=== PATIENT | female | born 2000 | race Caucasian/White ===

== ENCOUNTER 2020-06-18 18:46 | Emergency (ER) | payer OTHER ==
[2020-06-18 19:07] VITALS: BP 124/60
[2020-06-18] MEDS ORDERED: PROMETHAZINE HCL 25 MG TABLET PO ONE (19:32)
[2020-06-18] MEDS ORDERED: ACETAMINOPHEN 325 MG TABLET PO ONE (19:32)
--- NOTE | 2020-06-18 19:33 | ER Document Report ---
ED Medical Screen (RME) - General Chief Complaint: Nausea Stated Complaint: NAUSEA Time Seen by Provider: 06/18/20 19:28 Notes: Patient presents with concerns about possible coronavirus. Patient reports nausea, congestion, sore throat and fatigue. Patient reports occasional shortness of breath. Patient is currently 7 weeks . I have greeted and performed a rapid initial assessment of this patient. A comprehensive ED assessment and evaluation of the patient, analysis of test results and completion of the medical decision making process will be conducted by additional ED providers. Physical Exam - Vital signs Vitals: Temp Pulse Resp BP Pulse Ox 98.7 F 83 18 124/60 100 06/18/20 19:06 06/18/20 19:06 06/18/20 19:06 06/18/20 19:06 06/18/20 19:06 - General General appearance: Appears well, Alert In distress: None - Respiratory Respiratory status: No respiratory distress Course - Vital Signs Vital signs: Temp Pulse Resp BP Pulse Ox 98.7 F 83 18 124/60 100 06/18/20 19:06 06/18/20 19:06 06/18/20 19:06 06/18/20 19:06 06/18/20 19:06
== END 2020-06-18 20:35 | disposition left against medical advice (07) ==
LOC: ER 18:46
DX: J02.9 Acute pharyngitis, unspecified (principal); R11.0 Nausea; R53.83 Other fatigue
CPT/HCPCS: 99281

== ENCOUNTER → 2020-06-19 | Outpatient (CLI) | payer OTHER ==
--- NOTE | 2020-06-19 13:23 | ER RDC ASSESSMENT REPORT ---
Intake - In the Last 14 days Have you traveled outside [place]?: No Have you been in close contact with someone CONFIRMED: Yes Worked in Healthcare?: No - Symptoms Subjective Fever([place] feverish): No Chills: Yes Muscule Aches: No Runny Nose: No Sore Throat: Yes Cough (New or worsening chronic cough): No Shortness of breath: Yes Nausea or Vomiting: No Headache: Yes Abdominal Pain: No Diarrhea(3 or more loose stools in last 24 hours): No - Do you have any of the following Chronic lung disease: Asthma or emphysema or COPD: Yes Chronic Lung Disease Comment: asthma Cystic Fibrosis: No Diabetes: No High Blood Pressure: No Cardiovascular Disease: No Chronic Kidney Disease: No Chronic Liver Disease: No Chronic blood disorder like Sickle Cell Disease: No Weak immune system due to disease or medication: No Neurologic condition that limits movement: No Developmental delay - Moderate to Severe: No Recent (within past 2 weeks) or current : Yes Morbid Obesity (>100 pounds over ideal weight): No - Objective Temperature: 98.4 F Pulse Rate: 79 Respiratory Rate: 16 Blood Pressure: 125/55 O2 Sat by Pulse Oximetry: 97 Objective: Given above, testing performed: If Testing Performed: Test Specimen Type Sent to General - General Information source: Patient Notes: Patient presents to the RDC for screening for the coronavirus. Patient reports having symptoms for the past week including chills, sore throat, shortness of breath and headache. Patient is currently 7 months and has a history of asthma and anemia. Past Medical History - General Information source: Patient - Social History Smoking Status: Former Smoker - Medical History Medical History: Other - Anemia Pulmonary Medical History: Reports: Hx Asthma Past Surgical History: Reports: Hx Appendectomy, Hx Tonsillectomy Physical Exam - Notes Notes: The patient was evaluated during the global Covid 19 pandemic, and that diagnosis was suspected/considered upon their initial presentation. Their evaluation, treatment and testing was consistent with current guidelines for patients who present with complaints or symptoms that may be related to Covid 19. Full physical exam could not be performed due to covid 19 isolation protocols. Constitutional: Nontoxic appearance, no acute distress Eyes: Nonicteric, extraocular movements intact, sclera clear ENT: Posterior pharynx without exudates, no tonsillar hypertrophy Cardiovascular: Heart rate and rhythm regular, no JVD Respiratory: Breath sounds clear bilaterally, nonlabored breathing, no use of accessory muscles, no tachypnea Gastrointestinal: Gravid abdomen Muculoskeletal: Moves all extremities well Skin: Normal color Neuro: Awake alert oriented, normal speech Psych: Normal mood and affect Diagnostic Results Laboratory Results: Patient presents with upper respiratory symptoms worrisome for possible Covid 19. Patient does not have emergency worrying symptoms such as difficulty breathing, shortness of breath, chest pain, pressure, confusion or cyanosis. P atient appears suitable for discharge as they are not of an advanced age, do not have any chronic medical conditions such as diabetes, CAD, immune deficiency, chronic lung disease or chronic kidney disease. Patient's vital signs are stable and patient is nontoxic in appearance. Good return precautions have been discussed with patient, patient verbalized understanding and is agreeable with discharge plan of care at this time. Patient Education/Counseling Counseling/Education: Patient was provided with discharge information including: As a person under investigation for Covid 19, the [place] department of Health and Human Services, division of public health advises you to adhere to the following guidance until your test results are reported to you. If your test result is positive, you will receive additional information from your provider and your local health department at that time. Remain at home until you are cleared by the health provider or public health authorities. Keep a log of visitors to your home, notify any visitors to your home of your isolation status. If you plan to move to a new address or leave the county, notify the local health department in your County. Call your doctor or seek care if you have an urgent medical need. Before seeking medical care, call ahead to get instructions from the provider before arriving at the medical office clinic or hospital. Notify them that you are being tested for the virus that causes Covid 19 so that arrangements can be made, as necessary, to prevent transmission to others in the healthcare setting. Next, notify the local health department in your county. If a medical emergency arises and you need to call 911, inform the first responders that you are being tested for the virus that causes Covid 19. Next, notify the local health department in your county. RDC Discharge - Discharge Clinical Impression: Encounter for screening laboratory testing for COVID-19 virus Condition: Stable Disposition: Home; Selfcare
[2020-06-19 13:44] VITALS: BP 125/55
[2020-06-19 14:35] LABS: A TYPE INFLUENZA AG NEGATIVE (NEGATIVE); B INFLUENZA AG NEGATIVE (NEGATIVE)
== END ==
LOC: RDC 13:03
PROVIDERS: ATTEND Nurse Practitioner Family
DX: Z20.828 Contact with and (suspected) exposure to other viral communicable diseases (principal)
CPT/HCPCS: 87070; 87880; 87635; 87804; C9803; 99201

== ENCOUNTER → 2020-08-21 | Outpatient (CLI) | payer OTHER ==
[2020-08-21 15:41] VITALS: BP 119/58
--- NOTE | 2020-08-21 15:41 | ER RDC ASSESSMENT REPORT ---
Intake - In the Last 14 days Have you traveled outside [place]?: No Have you been in close contact with someone CONFIRMED: No Worked in Healthcare?: No - Symptoms Subjective Fever([place] feverish): No Chills: No Muscule Aches: No Runny Nose: No Sore Throat: No Cough (New or worsening chronic cough): Yes Shortness of breath: Yes Nausea or Vomiting: No Headache: No Abdominal Pain: No Diarrhea(3 or more loose stools in last 24 hours): No - Do you have any of the following Chronic lung disease: Asthma or emphysema or COPD: No Cystic Fibrosis: No Diabetes: No High Blood Pressure: No Cardiovascular Disease: No Chronic Kidney Disease: No Chronic Liver Disease: No Chronic blood disorder like Sickle Cell Disease: No Weak immune system due to disease or medication: No Neurologic condition that limits movement: No Developmental delay - Moderate to Severe: No Recent (within past 2 weeks) or current : No --If current: Trimester: 3rd Obesity Comment: Height 5 feet 4 inches weight 204 pounds Other Comment: 37 weeks patient has a history of anemia - Objective Temperature: 98.2 F Pulse Rate: 79 Respiratory Rate: 16 Blood Pressure: 119/58 O2 Sat by Pulse Oximetry: 98 Objective: Given above, testing performed: If Testing Performed: Test Specimen Type Sent to General - General Information source: Patient Notes: Patient here at [facility] for Covid testing patient's started to have symptoms of a cough and difficulty breathing reports feeling fatigued and occasional hallucinations. Patient is 37 weeks with a history of anemia and sees [facility] for care. Patient was instructed to come to have Covid testing done patient denies any known positive exposure that she is aware of. Past Medical History - General Information source: Patient - Social History Smoking Status: Former Smoker - History of Vaping nine months ago Pulmonary Medical History: Reports: Hx Asthma Past Surgical History: Reports: Hx Appendectomy, Hx Tonsillectomy Physical Exam - General General appearance: Appears well, Alert In distress: None Notes: PHYSICAL EXAMINATION: GENERAL: Well-appearing and in no acute distress. HEAD: Atraumatic, normocephalic. EYES: sclera anicteric, conjunctiva are normal. ENT: nares patent. Moist mucous membranes. NECK: Normal range of motion, supple without lymphadenopathy LUNGS: CTAB and equal. No wheezes rales or rhonchi. Respirations even and unlabored lung sounds clear. HEART: Regular rate and rhythm without murmurs ABDOMEN: Soft, nontender, normal bowel sounds, no guarding. EXTREMITIES: Normal range of motion, no pitting edema. No cyanosis. NEUROLOGICAL: Cranial nerves grossly intact. Normal speech. Normal gait. PSYCH: Normal mood, normal affect. SKIN: Warm, Dry, normal turgor, no rashes or lesions noted Diagnostic Results Laboratory Results: Pending strep culture pending Covid testing results. Patient provided instructions regarding Covid to include: As a person under investigation for Covid 19, the [facility] of Health and Human Services, division of public health advises you to adhere to the following guidance until your test results are reported to you. If your test result is positive, you will receive additional information from your provider and your local health department at that time. Remain at home until you are cleared by the health provider or public health authorities. Keep a log of visitors to your home, notify any visitors to your home of your isolation status. If you plan to move to a new address or leave the [facility], notify the local health department in your County. Call your doctor or seek care if you have an urgent medical need. Before seeking medical care, call ahead to get instructions from the provider before arriving at the medical office clinic or hospital. Notify them that you are being tested for the virus that causes Covid 19 so that arrangements can be made, as necessary, to prevent transmission to others in the healthcare setting. Next, notify the local health department in your [facility]. If a medical emergency arises and you need to call 911, inform the first responders that you are being tested for the virus that causes Covid 19. Next, notify the local health department in your [facility]. Patient Education/Counseling Counseling/Education: Patient presents with upper respiratory symptoms worrisome for possible Covid 19. Patient does not have emergency worring symptoms such as difficulty breathing, shortness of breath, chest pain, pressure, confusion or cyanosis. Patient appears suitable for discharge. Patient instructed to follow-up with cataract lens generator at [facility]. To ED for persistent or worsening symptoms. Patient's vital signs are stable and patient is nontoxic in appearance. Good return precautions have been discussed with patient, patient verbalized understanding and is agreeable with discharge plan of care at this sukhwinder rachel [facility] Discharge - Discharge Clinical Impression: Encounter for screening laboratory testing for COVID-19 virus Upper respiratory infection Qualifiers: URI type: unspecified URI Qualified Code(s): J06.9 - Acute upper respiratory infection, unspecified Condition: Stable Disposition: Home; Selfcare
[2020-08-21 17:17] LABS: A TYPE INFLUENZA AG NEGATIVE (NEGATIVE); B INFLUENZA AG NEGATIVE (NEGATIVE)
== END ==
LOC: RDC 14:27
PROVIDERS: ATTEND Nurse Practitioner Family
DX: Z20.828 Contact with and (suspected) exposure to other viral communicable diseases (principal); R05 Cough; R06.02 Shortness of breath; Z3A.37 37 weeks gestation of pregnancy
CPT/HCPCS: 87070; 87880; 87635; 87804; 99211 ×2; C9803

== ENCOUNTER 2020-09-04 16:39 | Outpatient (CLI) | payer OTHER ==
[2020-09-04 17:39] LABS: APPEARANCE,URINE SLIGHTLY-CLOUDY; BILIRUBIN,URINE NEGATIVE (NEGATIVE); COLOR,URINE YELLOW; GLUCOSE, URINE NEGATIVE (NEGATIVE); KETONES,URINE NEGATIVE (NEGATIVE); LEUKOCYTE ESTERASE,URINE TRACE (NEGATIVE); NITRITE,URINE NEGATIVE (NEGATIVE); PROTEIN,URINE NEGATIVE (NEGATIVE); URINE SPECIFIC GRAVITY 1.004; UROBILINOGEN,URINE NEGATIVE mg/dL (<2.0)
[2020-09-04 18:03] LABS: URINE AMPHETAMINES SCREEN NEGATIVE; URINE BARBITURATES SCREEN NEGATIVE; URINE BENZODIAZEPINES SCREEN NEGATIVE; URINE COCAINE SCREEN NEGATIVE; URINE MARIJUANA (THC) SCREEN NEGATIVE; URINE METHADONE SCREEN NEGATIVE; URINE PHENCYCLIDINE SCREEN NEGATIVE
--- NOTE | 2020-09-04 18:19 | Non Stress Test Report ---
Non Stress Test Datetime Report Generated by CPN: 09/04/2020 18:18 DEMOGRAPHIC Test Number: 1 EGA NST: 39.2 INDICATION Indication for Study (NST) Other: Labor Observation VITAL SIGNS Temperature - NST: 99.1 Pulse - NST: 58 RESP - NST: 18 NBPSYS NST: 119 NBPDIA NST: 65 URINE RESULTS Urine Ketones - NST: Positive MONITORING Monitor Explained: Monitor Explained; Test Explained; Patient Verbalized Understanding Time on Monitor: 09/04/2020 16:56 Time off Monitor: 09/04/2020 17:59 NST Duration: 63 NST INTERVENTIONS NST Interventions: PO Hydration; Reposition Patient Physician Notified NST: Shearer MD BABY A: [id number] BABY A Movement : Present Contraction Frequency : Irregular FHR Baseline : 140 Accelerations : 15X15 Decelerations : None Variability : Moderate 6-25bpm NST Review: Meets Criteria for Reactive NST NST Review and Verified By : David Madrigal RN NST Results: Reactive NST REPORT Report Trigger: Send Report
== END 2020-09-04 18:06 | disposition home or self-care (01) ==
LOC: LC 16:39
PROVIDERS: ATTEND Obstetrics & Gynecology
DX: O47.1 False labor at or after 37 completed weeks of gestation (principal); Z3A.39 39 weeks gestation of pregnancy
CPT/HCPCS: 59025; 80307; 81005; 84112

== ENCOUNTER 2020-09-08 20:34 | Outpatient (CLI) | payer OTHER ==
[2020-09-08 21:16] LABS: APPEARANCE,URINE SLIGHTLY-CLOUDY; BILIRUBIN,URINE NEGATIVE (NEGATIVE); COLOR,URINE YELLOW; GLUCOSE, URINE NEGATIVE (NEGATIVE); KETONES,URINE NEGATIVE (NEGATIVE); LEUKOCYTE ESTERASE,URINE SMALL (NEGATIVE); NITRITE,URINE NEGATIVE (NEGATIVE); PROTEIN,URINE NEGATIVE (NEGATIVE); UROBILINOGEN,URINE NEGATIVE mg/dL (<2.0)
--- NOTE | 2020-09-08 21:35 | Non Stress Test Report ---
Non Stress Test Datetime Report Generated by CPN: 09/08/2020 21:35 DEMOGRAPHIC EGA NST: 39.6 INDICATION Indication for Study (NST) Other: labor check MONITORING Monitor Explained: Monitor Explained; Test Explained; Patient Verbalized Understanding Time on Monitor: 09/08/2020 20:52 Time off Monitor: 09/08/2020 21:17 NST Duration: 25 NST INTERVENTIONS NST Interventions: None Physician Notified NST: Luong BABY A: [id number] BABY A Movement : Present Contraction Frequency : none FHR Baseline : 135 Accelerations : 15X15 Decelerations : None Variability : Moderate 6-25bpm NST Review: Meets Criteria for Reactive NST NST Review and Verified By : Constantine Farris, RN NST Results: Reactive NST REPORT Report Trigger: Send Report Report Trigger: Send Report
[2020-09-08 21:41] LABS: URINE AMPHETAMINES SCREEN NEGATIVE; URINE BARBITURATES SCREEN NEGATIVE; URINE BENZODIAZEPINES SCREEN NEGATIVE; URINE COCAINE SCREEN NEGATIVE; URINE MARIJUANA (THC) SCREEN NEGATIVE; URINE METHADONE SCREEN NEGATIVE; URINE PHENCYCLIDINE SCREEN NEGATIVE
== END 2020-09-08 21:26 | disposition home or self-care (01) ==
LOC: LC 20:34
PROVIDERS: ATTEND Student in an Organized Health Care Education/Training Program
DX: O47.1 False labor at or after 37 completed weeks of gestation (principal); Z3A.39 39 weeks gestation of pregnancy; Z87.891 Personal history of nicotine dependence
CPT/HCPCS: 59025; 80307; 81005; 84112

== ENCOUNTER 2020-09-13 08:28 | Outpatient (CLI) | payer OTHER ==
[2020-09-13 09:02] LABS: APPEARANCE,URINE SLIGHTLY-CLOUDY; BILIRUBIN,URINE NEGATIVE (NEGATIVE); COLOR,URINE YELLOW; GLUCOSE, URINE NEGATIVE (NEGATIVE); KETONES,URINE NEGATIVE (NEGATIVE); LEUKOCYTE ESTERASE,URINE NEGATIVE (NEGATIVE); NITRITE,URINE NEGATIVE (NEGATIVE); PROTEIN,URINE NEGATIVE (NEGATIVE); URINE SPECIFIC GRAVITY 1.013; UROBILINOGEN,URINE NEGATIVE mg/dL (<2.0)
[2020-09-13 09:17] LABS: URINE AMPHETAMINES SCREEN NEGATIVE; URINE BARBITURATES SCREEN NEGATIVE; URINE BENZODIAZEPINES SCREEN NEGATIVE; URINE COCAINE SCREEN NEGATIVE; URINE MARIJUANA (THC) SCREEN NEGATIVE; URINE METHADONE SCREEN NEGATIVE; URINE PHENCYCLIDINE SCREEN NEGATIVE
--- NOTE | 2020-09-13 12:17 | Non Stress Test Report ---
Non Stress Test Datetime Report Generated by CPN: 09/13/2020 12:17 DEMOGRAPHIC Test Number: 3 EGA NST: 40.4 INDICATION Indication for Study (NST) Other: Labor check VITAL SIGNS Temperature - NST: 99.1 Pulse - NST: 56 RESP - NST: 18 NBPSYS NST: 117 NBPDIA NST: 56 MONITORING Monitor Explained: Monitor Explained; Test Explained; Patient Verbalized Understanding Time on Monitor: 09/13/2020 08:41 Time off Monitor: 09/13/2020 11:34 NST Duration: 173 NST INTERVENTIONS NST Interventions: PO Hydration; Reposition Patient (Annotations: Data stored by CPN on behalf of user) Physician Notified NST: Dr Castillo BABY A: [id number] BABY A Movement : Present Movement : Present Contraction Frequency : irreg FHR Baseline : 130 Accelerations : 15X15 Decelerations : None Variability : Moderate 6-25bpm NST Review: Meets Criteria for Reactive NST NST Review and Verified By : DebbieDo Calvert, RN NST Results: Reactive NST COMMENTS NST Comments: pt to be d/c home to return Alex 12/14 for induction of labor NST REPORT Report Trigger: Send Report
== END 2020-09-13 12:05 | disposition home or self-care (01) ==
LOC: LC 08:28
PROVIDERS: ATTEND Obstetrics & Gynecology Gynecology
DX: O47.1 False labor at or after 37 completed weeks of gestation (principal); Z3A.40 40 weeks gestation of pregnancy
CPT/HCPCS: 80307; 81005

== ENCOUNTER 2020-09-13 20:38 | Outpatient (CLI) | payer OTHER ==
[2020-09-13 21:16] LABS: APPEARANCE,URINE CLEAR; BILIRUBIN,URINE NEGATIVE (NEGATIVE); COLOR,URINE YELLOW; GLUCOSE, URINE NEGATIVE (NEGATIVE); KETONES,URINE 20 mg/dL (NEGATIVE); LEUKOCYTE ESTERASE,URINE NEGATIVE (NEGATIVE); NITRITE,URINE NEGATIVE (NEGATIVE); PROTEIN,URINE NEGATIVE (NEGATIVE); URINE SPECIFIC GRAVITY 1.012; UROBILINOGEN,URINE NEGATIVE mg/dL (<2.0)
[2020-09-13 21:35] LABS: URINE AMPHETAMINES SCREEN NEGATIVE; URINE BARBITURATES SCREEN NEGATIVE; URINE BENZODIAZEPINES SCREEN NEGATIVE; URINE COCAINE SCREEN NEGATIVE; URINE MARIJUANA (THC) SCREEN NEGATIVE; URINE METHADONE SCREEN NEGATIVE; URINE PHENCYCLIDINE SCREEN NEGATIVE
[2020-09-13] MEDS ORDERED: HYDROXYZINE PAMOATE 50 MG CAPSULE PO ONE (21:38)
[2020-09-13] MEDS ORDERED: HYDROXYZINE PAMOATE 50 MG CAPSULE ONE (21:39)
--- NOTE | 2020-09-13 23:14 | Non Stress Test Report ---
Non Stress Test Datetime Report Generated by CPN: 09/13/2020 23:14 DEMOGRAPHIC EGA NST: 40.4 INDICATION Indication for Study (NST) Other: LC- ctx MONITORING Monitor Explained: Monitor Explained; Test Explained; Patient Verbalized Understanding Time on Monitor: 09/13/2020 20:50 Time off Monitor: 09/13/2020 21:34 NST Duration: 44 NST INTERVENTIONS NST Interventions: Reposition Patient Physician Notified NST: Dr. Castillo BABY A: [id number] BABY A Movement : Present (Annotations: Data stored by [facility] on behalf of user) Contraction Frequency : 1-4 FHR Baseline : 135 Accelerations : 15X15 Decelerations : None Variability : Moderate 6-25bpm NST Review: Meets Criteria for Reactive NST NST Review and Verified By : Leonardo Estrella RN NST Results: Reactive NST REPORT Report Trigger: Send Report
== END 2020-09-13 21:54 | disposition home or self-care (01) ==
LOC: LC 20:38
PROVIDERS: ATTEND Obstetrics & Gynecology Gynecology
DX: O47.1 False labor at or after 37 completed weeks of gestation (principal); Z3A.40 40 weeks gestation of pregnancy; Z87.891 Personal history of nicotine dependence
CPT/HCPCS: 59025; 80307; 81005

== ENCOUNTER 2020-09-14 06:20 | Inpatient (IN) | payer OTHER ==
[2020-09-14 07:11] LABS: APPEARANCE,URINE CLOUDY; BILIRUBIN,URINE NEGATIVE (NEGATIVE); COLOR,URINE RED; GLUCOSE, URINE 50 mg/dL (NEGATIVE); KETONES,URINE 80 mg/dL (NEGATIVE); LEUKOCYTE ESTERASE,URINE TRACE (NEGATIVE); NITRITE,URINE NEGATIVE (NEGATIVE); PROTEIN,URINE 100 mg/dL (NEGATIVE); URINE SPECIFIC GRAVITY 1.026; UROBILINOGEN,URINE NEGATIVE mg/dL (<2.0)
[2020-09-14 07:27] LABS: URINE AMPHETAMINES SCREEN NEGATIVE; URINE BARBITURATES SCREEN NEGATIVE; URINE BENZODIAZEPINES SCREEN NEGATIVE; URINE COCAINE SCREEN NEGATIVE; URINE MARIJUANA (THC) SCREEN NEGATIVE; URINE METHADONE SCREEN NEGATIVE; URINE PHENCYCLIDINE SCREEN NEGATIVE
[2020-09-14] MEDS ORDERED: LIDOCAINE 1% INJ-PF (10 MG/ML) 30 ML SDV ONE (07:36)
[2020-09-14] MEDS ORDERED: OXYTOCIN 10 UNIT/ML VIAL ONE (07:36)
[2020-09-14] MEDS ORDERED: MISOPROSTOL 0.2 MG TABLET ONE (07:36)
[2020-09-14] MEDS ORDERED: OXYTOCIN/0.9 % SODIUM CHLORIDE 30 UNIT/500 ML RTUINJ ONE (07:36)
[2020-09-14] MEDS ORDERED: RINGERS SOLUTION,LACTATED 1,000 ML IV PRN (08:21)
[2020-09-14 08:39] LABS: ABSOLUTE MONOCYTES (AUTO) 0.3 10^3/uL (0.1-1.4); ABSOLUTE NEUT (AUTO) 15.6 10^3/uL (1.7-8.2); BASOPHILS % (AUTO) 0.2 % (0-2); HEMATOCRIT 38.1 % (36.0-47.0); HEMOGLOBIN 13.1 g/dL (12.0-15.5); LYMPHOCYTES % (AUTO) 6.1 % (13-45); MEAN CORPUSCULAR HEMOGLOBIN 30.7 pg (27.0-33.4); MEAN CORPUSCULAR HGB CONC 34.3 g/dL (32.0-36.0); MEAN CORPUSCULAR VOLUME 90 fl (80-97); PLATELET COUNT 221 10^3/uL (150-450); RED BLOOD COUNT 4.25 10^6/uL (3.72-5.28); RED CELL DISTRIBUTION WIDTH 14.2 % (11.5-14.0); SEGMENTED NEUTROPHILS % (AUTO) 91.7 % (42-78); TOTAL CELLS COUNTED % (AUTO) 100 %
[2020-09-14 09:00] LABS: URINE CREATININE 138.1 mg/dL (16-327)
[2020-09-14 09:09] LABS: UR PRO/CREAT RATIO RESULT 3.6 mg/mg (0.0-0.2); URINE PROTEIN 490.5 mg/dL (<12)
--- NOTE | 2020-09-14 10:29 | Admission Physical ---
Datetime Report Generated by CPN: 09/14/2020 10:29 CURRENT ADMISSION Chief Complaint: Uterine Contractions; Suspected Ruptured Membranes Indication for Induction: Not Applicable Admit Impression : Term, Intrauterine ; Active Labor Admit Plan: Admit to Unit; Initiate Labor Protocol ALLERGIES Medication Allergies: No Medication Allergies: No Known Allergies (09/13/2020) Latex: No Latex Allergies OBSTETRICAL HISTORY EDC: 09/09/2020 00:00 : 2 Para: 0 Term: 0 : 0 SAB: 0 IAB: 0 Livin Gestational Diabetes: No Rh Sensitization: No Incompetent Cervix: No SKIP: No Infertility: No ART Treatment: No Uterine Anomaly: No IUGR: No Hx Previous C/S: No Macrosomia: No Hx Loss/Stillborn: No PIH: No Hx : No Placenta Previa/Abruption: No Depression/PP Depression: No PTL/PROM: No Post Hemorrhage: No Current Procedures: Ultrasound; NST Obstetrical History Comments: 2017 SAB g2 - current SEE RECORDS Alcohol: No Marijuana : No Cocaine: No Other Illicit Drugs: No Cigarettes: Former Smoker. [id number] Cigarette Frequency: < 5 per day Cigarette Comments: pt vaping with nicotine at begininng of MEDICAL HISTORY Diabetes: No Blood Transfusion: No Pulmonary Disease (Asthma, TB): No Breast Disease: No Hypertension: No Product Marketing Director Surgery: No Heart Disease: No Hosp/Surgery: No Autoimmune Disorder: No Anesthetic Complications: No Kidney Disease: No Abnormal Pap Smear: No Neuro/Epilepsy: No Psychiatric Disorders: No Other Medical Diseases: No Hepatitis/Liver Disease: No Significant Family History: No Varicosities/Phlebitis: No Trauma/Violence : No Thyroid Dysfunction: No Medical History Comments: anemia - currently taking iron supplements and had infusions prior to bipolar depression - no meds or care INFECTIOUS HISTORY Gonorrhea: No Genital Herpes: No Chlamydia: No Tuberculosis: No Syphilis: No Hepatitis: No HIV/AIDS Exposure: No Rash or Viral Illness: No HPV: No PHYSICAL EXAM General: Normal HEENT: Normal Neurologic: Normal Thyroid: Deferred Heart: Normal Lungs: Normal Breast: Deferred Back: Normal Abdomen: Normal Genitourinary Exam: Normal Extremities: Normal DTRs: Normal Pelvic Type: Adequate Vital Signs: Reviewed Details Vital Signs: intermittent elevated BPs VAGINAL EXAM Dilatation: 10 Effacement: 100 Station: 0 Contraction Comments: q2mins MEMBRANES Pooling: Positive Membranes: Ruptured FETUS A EGA: 40.5 Monitoring: External US FHR- Baseline: 140 Variability: Moderate 6-25bpm Accelerations: 15X15 Decelerations: Early; Variable FHR Category: Category II Estimated Weight (gm): 3200 Presentation: Vertex Admit Comment: at term presented for active labor. hx asthma as a child, hx depression and anxiety. questionable presentation of preeclampsia. now delivered-(late entry at 1025) PLANS FOR LABOR AND DELIVERY Labor and Delivery: None Pain Management: Medications Feeding Preference: Breast Benefit of Breast Feed Discussed: Yes Circumcision: N/A INFORMED CONSENT Assignment: Rakesh Barcenas MD Signature: with User ID: [email or web address] : with User ID: [email or web address]
[2020-09-14 10:30] LABS: URINE CREATININE 171.2 mg/dL (16-327)
[2020-09-14] MEDS ORDERED: MAGNESIUM HYDROXIDE SUSP 30 ML UDCUP PO PRN (10:30)
[2020-09-14] MEDS ORDERED: PROMETHAZINE HCL INJ 25 MG/1 ML VIAL IV PRN (10:30)
[2020-09-14] MEDS ORDERED: PROMETHAZINE HCL 25 MG SUPP.RECT PR PRN (10:30)
[2020-09-14] MEDS ORDERED: DIPH/PERTUSS(ACELL)/TETANUS VAC/PF 0.5 ML SYR (>=10YO) IM PRN (10:30)
[2020-09-14] MEDS ORDERED: DIPHENHYDRAMINE HCL 25 MG CAPSULE PO PRN (10:30)
[2020-09-14] MEDS ORDERED: ZOLPIDEM TARTRATE 5 MG TABLET PO PRN (10:30)
[2020-09-14] MEDS ORDERED: ACETAMINOPHEN 325 MG TABLET PO PRN (10:30)
[2020-09-14] MEDS ORDERED: BENZOCAINE/MENTHOL AEROSOL SPRAY 56 ML TOP PRN (10:30)
[2020-09-14] MEDS ORDERED: OXYTOCIN/0.9 % SODIUM CHLORIDE 30 UNIT/500 ML RTUINJ IV PRN (10:30)
[2020-09-14] MEDS ORDERED: MEASLES,MUMPS&RUBELLA VACC/PF 0.5 ML VIAL SUBCUT PRN (10:30)
[2020-09-14] MEDS ORDERED: PSEUDOEPHEDRINE HCL 30 MG TABLET PO PRN (10:30)
[2020-09-14] MEDS ORDERED: PROMETHAZINE HCL 25 MG TABLET PO PRN (10:30)
[2020-09-14] MEDS ORDERED: ACETAMINOPHEN WITH CODEINE #3 TABLET PO PRN ×2 (10:30)
[2020-09-14] MEDS ORDERED: NA PHOS,M-B/NA PHOS,DI-BA (ADULT) 133 ML ENEMA PR PRN (10:30)
[2020-09-14] MEDS ORDERED: GLYCERIN/WITCH HAZEL LEAF 1 EACH MED..WIPE TP PRN (10:30)
[2020-09-14] MEDS ORDERED: MISOPROSTOL 0.2 MG TABLET PR PRN (10:30)
[2020-09-14] MEDS ORDERED: DIBUCAINE 1% OINTMENT 28 GM TP PRN (10:30)
[2020-09-14 10:34] LABS: URINE PRO/CREAT RATIO RESULT CALCULATION NOT DONE mg/mg; URINE PROTEIN < 5.0 mg/dL (<12)
[2020-09-14 10:55] LABS: ALBUMIN 3.5 g/dL (3.5-5.0); ALKALINE PHOSPHATASE 187 U/L (38-126); ANION GAP 11 (5-19); ASPARTATE AMINO TRANSFERASE 28 U/L (14-36); BILIRUBIN,TOTAL 0.5 mg/dL (0.2-1.3); BLOOD UREA NITROGEN 11 mg/dL (7-20); CALCIUM 9.4 mg/dL (8.4-10.2); CARBON DIOXIDE 17 mmol/L (22-30); CHLORIDE 103 mmol/L (98-107); GLUCOSE 108 mg/dL (75-110); POTASSIUM 4.4 mmol/L (3.6-5.0); TOTAL PROTEIN 6.3 g/dL (6.3-8.2); URIC ACID 6.8 mg/dL (2.5-6.2)
[2020-09-14] MEDS ORDERED: IBUPROFEN 800 MG TABLET ONE (12:06)
[2020-09-14] MEDS: IBUPROFEN 800 MG TABLET PO SCH ×3 (12:09→22:06)
--- NOTE | 2020-09-14 14:29 | Birth Certificate Data ---
Cert Data Datetime Report Generated by CPN: 09/14/2020 14:29 CERTIFICATE DATA Delivery Provider: Tika Huffman CNM (09/04/2020 16:59:Valeria Lilly RNC) 47a. Care: Yes (09/04/2020 16:59:Hollie Grant RN) 47b. Date of First Visit: 03/08/2020 00:00 (09/04/2020 16:59:Hollie Grant RN) 47c. Date of Last Visit: 09/06/2020 00:00 (09/04/2020 16:59:Hollie Grant RN) 48a. Number of Prev Live Births: 0 (09/04/2020 16:59:Hollie Grant RN) 48b. Now Livin (09/04/2020 16:59:Fina Capone RN) 48c. Live Births Now : 0 (09/04/2020 16:59:QS system process) 48e. Losses: 1 (09/04/2020 16:59:Hollie Grant RN) RISK FACTORS IN THIS 49a. Diabetes: No (09/04/2020 16:59:Hollie Grant RN) 49b. Hypertension: No (09/04/2020 16:59:Hollie Grant RN) 49c. Previous Births: 0 (09/04/2020 16:59:Fina Capone RN) 49d. Stillborns: No (09/04/2020 16:59:Hollie Grant RN) 49d. IUGR: No (09/04/2020 16:59:Hollie Grant RN) 49e. Infertility Treatment: No (09/04/2020 16:59:Hollie Grant RN) Mother's Height 50b. Height Inches: 64 (09/14/2020 14:18:QS system process) Mother's Weight 51a. Pre- Weight (lbs): 180 (09/04/2020 16:59:Hollie Grant RN) 51b. Weight at Delivery (lbs): 216 (09/14/2020 06:30:QS system process) Infections Present/Treated 53a. Gonorrhea: No (09/04/2020 16:59:Hollie Grant RN) Results this Hospital Visit : Negative (09/04/2020 16:59:Fina Capone RN) 53b. Syphilis: No (09/04/2020 16:59:Hollie Grant RN) Results this Hospital Visit: NONREACTIVE (09/14/2020 07:35:QS system process) 53c. Chlamydia: No (09/04/2020 16:59:Hollie Grant RN) Results this Hospital Visit: Negative (09/04/2020 16:59:Fina Capone, [place]) 53d. Hepatitis B: No (09/04/2020 16:59:Hollie Grant RN) Results this Hospital Visit: Negative (09/04/2020 16:59:Fina Capone RN) 53e. Hepatitis C: Negative (09/04/2020 16:59:Hollie Grant RN) 53h. Mother Tested for HBsAG: Yes (09/04/2020 16:59:Fina Capone RN) 53i. Date Tested: 03/08/2020 00:00 (09/04/2020 16:59:Fina Capone RN) 53j. Test Result: Negative (09/04/2020 16:59:Fina Capone RN) Obstetric Procedures 54a, b, c. Obstetric Procedures: Ultrasound; NST (09/04/2020 16:59:Hollie Grant RN) Cigarette Smoking Cigarette Smoking: Former Smoker. [id number] (09/04/2020 16:59:Hollie Grant RN) 55a. 3 Months Before Preg - Ci (09/04/2020 16:59:Hollie Grant RN) 55a. Packs: 0 (09/04/2020 16:59:Hollie Grant RN) 55b. 1st Trimester of Preg- Ci (09/04/2020 16:59:Hollie Grant RN) 55b. Packs: 0 (09/04/2020 16:59:Hollie Grant RN) 55c. 2nd Trimester of Preg- Ci (09/04/2020 16:59:Hollie Grant RN) 55c. Packs: 0 (09/04/2020 16:59:Hollie Grant RN) 55d. 3rd Trimester of Preg- Ci (09/04/2020 16:59:Hollie Grant RN) 55d. Packs: 0 (09/04/2020 16:59:Hollie Grant RN) Onset of Labor 56a. PROM >12 Hrs: 3.78 (09/04/2020 16:59:QS system process) 56b. Precipitous Labor <3 Hrs: 11 (09/04/2020 16:59:QS system process) 56c. Prolonged Labor > 20 Hrs: 11 (09/04/2020 16:59:QS system process) 57a. Induction of Labor: N/A (09/04/2020 16:59:JOHNNY Bullard) 57a. Induction of Labor: Cytotec @ 1000 (09/14/2020 10:07:Graciela Langley RN) 57c. Non-Vertex Presentation A: Vertex (09/04/2020 16:59:JOHNNY Bullard) 57d. Steroids - Lung Mat: None (09/04/2020 16:59:JOHNNY Bullard) 57d. Steroids - Lung Mat: Not Applicable (09/04/2020 16:59:JOHNNY Bullard) 57g. Moderate/Heavy Meconium: Clear (09/04/2020 16:59:JOHNNY Bullard) 57h. Intolerance of Labor: N/A (09/04/2020 16:59:JOHNNY Bullard) : N/A (09/04/2020 16:59:JOHNNY Bullard) 57i. Epidural/Spinal Anesthesia: None (09/04/2020 16:59:Graciela Langley RN) Method of Delivery 58a. Forceps - Unsuccessful A: N/A (09/04/2020 16:59:Valeria Lilly Nilo) 58b. Vacuum - Unsuccessful A: N/A (09/04/2020 16:59:Valeria Lilly [facility]) 58c. Presentation at 58c. Presentation at - A : Vertex (09/04/2020 16:59:[facility]) 58c. Presentation at - A : N/A (09/04/2020 16:59:[facility]) 58c. Presentation at - A : Cephalic (09/13/2020 20:52:Orquidea Sandoval RN) Final Route and Method of Del 58d. Baby A Route/Delivery: Vaginal (09/04/2020 16:59:[facility]) 58e. Trial of Labor Attempted: No (09/04/2020 16:59:Graciela Langley RN) 58e. Trial of Labor Attempted A: N/A (09/04/2020 16:59:[facility]) 58e. Trial of Labor Attempted B: N/A (09/04/2020 16:59:Graciela Langley RN) Maternal Morbidity 59b. 3rd or 4th Degree Lacs: Perineal (09/04/2020 16:59:Valeria Camp, C) Birthweight Baby A: 3522 (09/04/2020 16:59:Graciela Langley RN) 60a. Pounds : 7 (09/04/2020 16:59:QS system process) 60b. Ounces: 12 (09/04/2020 16:59:QS system process) 61. GA at Delivery Baby A: 40.5 (09/04/2020 16:59:Valeria Camp, [facility]) : Full Term- 39- 40.6 Weeks (09/04/2020 16:59:QS system process) 62a. 5 Minute Baby A: 9 (09/04/2020 16:59:QS system process)
--- NOTE | 2020-09-14 14:29 | Delivery Summary ---
Del Sum A-C Datetime Report Generated by CPN: 09/14/2020 14:29 DELIVERY PERSONNEL DELIVERY PERSONNEL: [id number] Delivery Doctor:: Tika Huffman CNM Nurse Bowling Alley Floors Installer Certified:: Tika Huffman CNM Labor and Delivery Nurse:: Graciela Langley RNsupervisor whipped topping Nurse:: JOHNNY Bullard Nursery Nurse:: Danielle Avila RN Nursery Nurse:: Nikia Lombardi RN Mixed Signal Design Engineer/VARNISH DIPPER: Pao Koenig, MEDICAL EQUIPMENT REPAIRER MATERNAL INFORMATION Delivery Anesthesia: None Medications After Delivery: Pitocin Bolus-Please Comment Meds After Delivery Comment: Pitocin 30 units in 500 ml NS open for bolus at delivery of anterior shoulder Delivery QBL: 100 Maternal Complications: None Provider Comments: ANNA VIABLE FEMALE WITH SPONTANEOUS CRY. NUCHAL CORD X1 REDUCED AFTER DELIVERY OF HEAD. CORD DOUBLE CLAMPED AND CUT. SPONTANEOUS INTACT PLACENTA WITH 3VC. 2ND DEGREE PERINEAL LACERATION REPAIRED UNDER LOCAL ANESTHESIA. I_O CATHETHER FOR LA/CR COLLECTION 130CC. MOTHER AND INFANT STABLE IN L_D #8 LABOR SUMMARY EDC: 09/09/2020 00:00 No. Babies in Womb: 1 Attempted: No Labor Anesthesia: None LABOR INFORMATION Reason for Induction: Not Applicable Onset of Labor: 09/13/2020 22:30 Complete Dilatation: 09/14/2020 07:53 Cervical Ripening Agents: Cytotec @ 1000 Oxytocin: N/A Group B Beta Strep: Negatice (Annotations: Data stored by CPN on behalf of user) Antibiotics # of Doses: 0 Name of Antibiotic Given: 0 Steroids Given: None Reason Steroids Not Administered: Not Applicable MEMBRANES Membranes Rupture Method: Spontaneous Rupture of Membranes: 09/14/2020 05:50 Length of Rupture (hr): 3.78 Amniotic Fluid Color: Clear Amniotic Fluid Amount: Small Amniotic Fluid Odor: Normal STAGES OF LABOR Stage 1 hr: 9 Stage 1 min: 23 Stage 2 hr: 1 Stage 2 min: 44 Stage 3 hr: 0 Stage 3 min: 8 Total Time in Labor hr: 11 Total Time in Labor min: 15 VAGINAL DELIVERY Episiotomy: None Laceration #1: Perineal Laceration Extension #1: Second Degree Laceration Repair: Yes Sponge Count Correct: N/A Sharps Count Correct: N/A CSECTION DELIVERY Primary Indication: N/A Secondary Indication: N/A CSection Incidence: N/A Labor: N/A Elective: N/A CSection Incision: N/A BABY A INFORMATION Infant Delivery Date/Time: 09/14/2020 09:37 Method of Delivery: Vaginal Nurse Controlled Delivery: No Born in Route : No : N/A Forceps: N/A Vacuum Extraction: N/A Shoulder Dystocia : No PRESENTATION/POSITION BABY A Presentation: Cephalic Cephalic Presentation: Vertex Vertex Position: Left Occipital Posterior Breech Presentation: N/A PLACENTA INFORMATION BABY A Placenta Delivery Time : 09/14/2020 09:45 Placenta Method of Delivery: Spontaneous Placenta Status: Delivered SCORES BABY A Heart Rate 1 min: >100 bpm Resp Effort 1 min: Good Cry Reflex Irritability 1 min: Cough or Sneeze or Pulls Away Muscle Tone 1 min: Active Motion Color 1 min: Blue/Pale Resuscitation Effort 1 min: Tactile Stimulation SCORE 1 MIN: 8 Heart Rate 5 min: >100 bpm Resp Effort 5 min: Good Cry Reflex Irritability 5 min: Cough or Sneeze or Pulls Away Muscle Tone 5 min: Active Motion Color 5 min: Body [place], Extremities Blue Resuscitation Effort 5 min: N/A SCORE 5 MIN: 9 Resuscitation Effort 10 min: N/A INFANT INFORMATION BABY A Gestational Age at Delivery: 40.5 Gestational Status: Full Term- 39- 40.6 Weeks Outcome : Liveborn Condition : Stable Infant Sex: Female IDENTIFICATION BABY A Verification Date/Time: 09/14/2020 10:19 ID Band Number: [id number] Mother's Name Verified: Yes Infant RN Verifying Infant: Hero Langley, RN Additional Verifying Personnel: ADo Cedar, RN WEIGHT/LENGTH BABY A Infant Birthweight (gm): 3522 Infant Weight (lb): 7 Infant Weight (oz): 12 CORD INFORMATION BABY A No. Cord Vessels: 3 Nuchal Cord : Around Neck x1, Loose Cord Blood Taken: Yes-For Storage (Mom's Blood type +) Infant Suction: None ASSESSMENT BABY A Complications: Multiple Variable Decels Physical Findings at Delivery: Within Normal Limits Infant Respirations: Appears Normal Skin to Skin: Yes Emergency Dispatch Operator/ALS Called : No Care By: Ron Avila RN/ A Harjit RN Transferred To: Remains with Mother BABY B INFORMATION : N/A SIGNATURES Assignment: Rakesh Barcenas MD Signature: with User ID: [email or web address] : with User ID: [email or web address] : I was personally available for consultation and serving as supervising physician for the MLP.
[2020-09-14] MEDS: DOCUSATE SODIUM 100 MG CAPSULE PO SCH (17:26)
[2020-09-14] MEDS: FERROUS SULFATE 325 MG TABLET PO SCH (17:26)
[2020-09-14] MEDS: FAMOTIDINE 20 MG TABLET PO SCH (22:08)
[2020-09-15] MEDS: IBUPROFEN 800 MG TABLET PO SCH ×3 (06:56→21:44)
[2020-09-15 07:03] LABS: HEMATOCRIT 28.8 % (36.0-47.0); MEAN CORPUSCULAR HEMOGLOBIN 31.2 pg (27.0-33.4); MEAN CORPUSCULAR HGB CONC 34.3 g/dL (32.0-36.0); MEAN CORPUSCULAR VOLUME 91 fl (80-97); PLATELET COUNT 164 10^3/uL (150-450); RED BLOOD COUNT 3.17 10^6/uL (3.72-5.28); RED CELL DISTRIBUTION WIDTH 14.6 % (11.5-14.0); WHITE BLOOD COUNT 11.7 10^3/uL (4.0-10.5)
[2020-09-15 07:05] LABS: HEMOGLOBIN 9.9 g/dL (12.0-15.5)
[2020-09-15] MEDS: DOCUSATE SODIUM 100 MG CAPSULE PO SCH ×2 (09:40→17:33)
[2020-09-15] MEDS: FERROUS SULFATE 325 MG TABLET PO SCH ×2 (09:40→17:33)
[2020-09-15] MEDS: PRENATAL VITAMIN W DHA CAPSULE PO SCH (09:40)
[2020-09-15] MEDS: SENNOSIDES/DOCUSATE 8.6-50 MG 1 EACH TABLET PO SCH (09:40)
[2020-09-15] MEDS: FAMOTIDINE 20 MG TABLET PO SCH ×2 (09:40→21:43)
--- NOTE | 2020-09-15 10:20 | PDOC PROGRESS REPORT ---
Subjective-OB Progress Note for:: 09/15/20 - PP Day #1, doing well, c/o slight dizziness when getting out of bed, B+. Rubella immune, Physical Exam (OB) Vital Signs: Temp Pulse Resp BP Pulse Ox 98.2 F 56 L 16 124/62 100 09/15/20 07:53 09/15/20 07:53 09/15/20 07:53 09/15/20 07:53 09/15/20 07:53 Intake & Output 09/14/20 09/15/20 09/16/20 06:59 06:59 06:59 Weight 98 kg - General General Appearance: Appears well, Alert In distress: None - PIH/Pre-Eclampsia DTR's: 1 + Clonus: Negative Headache: Absent Epigastric Pain: No Visual Changes: No - Maternal Morbidity 59. Maternal Morbidity (serious complications experinced by the mother associated with labor and delivery: None of the above - Lochia Lochia Amount: Moderate 25-50 ml Lochia Color: Rubra/Red - Abdomen Description: Soft Hernia Present: No Fundal Description: Firm, Midline Fundal Height: u/u - u/2 - Respiratory Respiratory Status: No respiratory distress - Abdominal Distension: No distension - Genitourinary Genitourinary Note: voiding - Extremities Upper extremity: Normal inspection Lower extremities: Normal inspection - Neurological Cognition: Normal Orientation: AAOx4 - Psychological Associated symptoms: Normal affect, Normal mood - Skin Skin Temperature: Warm Skin Moisture: Dry Objective-Diagnostic Laboratory: 09/15/20 06:37 09/14/20 10:22 09/14/20 09/15/20 10:22 06:37 WBC 11.7 H RBC 3.17 L Hgb 9.9 L D Hct 28.8 L MCV 91 MCH 31.2 MCHC 34.3 RDW 14.6 H Plt Count 164 Sodium 130.7 L Potassium 4.4 Chloride 103 Carbon Dioxide 17 L Anion Gap 11 BUN 11 Creatinine 0.55 Est GFR ( Amer) > 60 Glucose 108 Uric Acid 6.8 H Calcium 9.4 Total Bilirubin 0.5 AST 28 Alkaline Phosphatase 187 H Total Protein 6.3 Albumin 3.5 Assessment and Plan(PN) - Assessment and Plan (1) Normal vaginal delivery Is this a current diagnosis for this admission?: Yes (2) Spontaneous onset of labor Is this a current diagnosis for this admission?: Yes (4) Upper respiratory infection Qualifiers: URI type: unspecified viral URI Qualified Code(s): J06.9 - Acute upper resp iratory infection, unspecified Is this a current diagnosis for this admission?: Yes Plan:: ambulation encouraged, Routine PP orders, pt to get OUB slowly w/ help - Time Spent with Patient Time with patient: Less than 15 minutes Medications reviewed and adjusted accordingly: Yes - Disposition Anticipated Discharge Disposition: Home, Self Care Anticipated Discharge Timeframe: within 24 hours
[2020-09-16] MEDS: IBUPROFEN 800 MG TABLET PO SCH ×2 (06:37→15:36)
[2020-09-16] MEDS: DOCUSATE SODIUM 100 MG CAPSULE PO SCH (09:48)
[2020-09-16] MEDS: PRENATAL VITAMIN W DHA CAPSULE PO SCH (09:48)
[2020-09-16] MEDS: FAMOTIDINE 20 MG TABLET PO SCH (09:48)
[2020-09-16] MEDS: FERROUS SULFATE 325 MG TABLET PO SCH (09:48)
[2020-09-16] MEDS: SENNOSIDES/DOCUSATE 8.6-50 MG 1 EACH TABLET PO SCH (09:48)
--- NOTE | 2020-09-16 10:31 | PDOC DISCHARGE SUMMARY ---
Impression - Admit/DC Date/PCP Admission Date/Primary Care Provider: 09/14/20 07:19 LYLA SEXTON MD Discharge Date: 09/16/20 - PP Day #2, doing well, B+, rubella immune. C/o numbness in Rt arm, improving some. - Discharge Diagnosis (1) Normal vaginal delivery Is this a current diagnosis for this admission?: Yes (2) Spontaneous onset of labor Is this a current diagnosis for this admission?: Yes (3) Encounter for screening laboratory testing for COVID-19 virus Is this a current diagnosis for this admission?: Yes (4) Upper respiratory infection Is this a current diagnosis for this admission?: Yes - Additional Information Resuscitation Status: Full Code Discharge Diet: As Tolerated Discharge Activity: Activity As Tolerated, No Lifting Over 10 Pounds, Pelvic Rest Referrals: LYLA SEXTON MD [Primary Care Provider] - Prescriptions: Ibuprofen [Motrin 800 mg Tablet] 800 mg PO Q8 #60 tablet Home Medications: Iron 325 tab PO BID 09/04/20 Prenat 115/Iron Fum/Folic/Dss [ 19 Tablet] 1 tab PO DAILY 09/04/20 Ibuprofen [Motrin 800 mg Tablet] 800 mg PO Q8 #60 tablet 09/16/20 HPI Reason(s) for Admission: Induction of Labor Procedures: NST, Ultrasound Intrapartum Procedure(s): Spontaneous Vaginal Delivery Complication(s): Laceration-Perineal Laceration-Degree: 2nd Hospital Course 59. Maternal Morbidity (serious complications experinced by the mother associated with labor and delivery: None of the above Results Laboratory Results: WBC 11.7 10^3/uL (4.0-10.5) H 09/15/20 06:37 RBC 3.17 10^6/uL (3.72-5.28) L 09/15/20 06:37 Hgb 9.9 g/dL (12.0-15.5) L D 09/15/20 06:37 Hct 28.8 % (36.0-47.0) L 09/15/20 06:37 MCV 91 fl (80-97) 09/15/20 06:37 MCH 31.2 pg (27.0-33.4) 09/15/20 06:37 MCHC 34.3 g/dL (32.0-36.0) 09/15/20 06:37 RDW 14.6 % (11.5-14.0) H 09/15/20 06:37 Plt Count 164 10^3/uL (150-450) 09/15/20 06:37 Lymph % (Auto) 6.1 % (13-45) L 09/14/20 07:35 [place] % (Auto) 2.0 % (3-13) L 09/14/20 07:35 Eos % (Auto) 0.0 % (0-6) 09/14/20 07:35 Baso % (Auto) 0.2 % (0-2) 09/14/20 07:35 Absolute Neuts (auto) 15.6 10^3/uL (1.7-8.2) H 09/14/20 07:35 Absolute Lymphs (auto) 1.0 10^3/uL (0.5-4.7) 09/14/20 07:35 Absolute Monos (auto) 0.3 10^3/uL (0.1-1.4) 09/14/20 07:35 Absolute Eos (auto) 0.0 10^3/uL (0.0-0.6) 09/14/20 07:35 Absolute Basos (auto) 0.0 10^3/uL (0.0-0.2) 09/14/20 07:35 Seg Neutrophils % 91.7 % (42-78) H 09/14/20 07:35 Sodium 130.7 mmol/L (137-145) L 09/14/20 10:22 Potassium 4.4 mmol/L (3.6-5.0) 09/14/20 10:22 Chloride 103 mmol/L (98-107) 09/14/20 10:22 Carbon Dioxide 17 mmol/L (22-30) L 09/14/20 10:22 Anion Gap 11 (5-19) 09/14/20 10:22 BUN 11 mg/dL (7-20) 09/14/20 10:22 Creatinine 0.55 mg/dL (0.52-1.25) 09/14/20 10:22 Est GFR ( Amer) > 60 (>60) 09/14/20 10:22 Est GFR (Non-Af Amer) Cancelled 09/14/20 07:35 Est GFR (MDRD) Non-Af > 60 (>60) 09/14/20 10:22 Glucose 108 mg/dL (75-110) 09/14/20 10:22 Uric Acid 6.8 mg/dL (2.5-6.2) H 09/14/20 10:22 Calcium 9.4 mg/dL (8.4-10.2) 09/14/20 10:22 Total Bilirubin 0.5 mg/dL (0.2-1.3) 09/14/20 10:22 Direct Bilirubin 0.0 mg/dL (0.0-0.4) 09/14/20 10:22 Neonat Total Bilirubin Not Reportable 09/14/20 10:22 Neonat Direct Bilirubin Not Reportable 09/14/20 10:22 Neonat Indirect Bili Not Reportable 09/14/20 10:22 AST 28 U/L (14-36) 09/14/20 10:22 ALT 13 U/L (<35) 09/14/20 10:22 Alkaline Phosphatase 187 U/L (38-126) H 09/14/20 10:22 Lactate Dehydrogenase 156 U/L (120-246) 09/14/20 10:22 Total Protein 6.3 g/dL (6.3-8.2) 09/14/20 10:22 Albumin 3.5 g/dL (3.5-5.0) 09/14/20 10:22 EGFR Cancelled 09/14/20 07:35 Urine Color RED 09/14/20 06:35 Urine Appearance CLOUDY 09/14/20 06:35 Urine pH 6.0 (5.0-9.0) 09/14/20 06:35 Ur Specific [place] 1.026 09/14/20 06:35 Urine Protein 100 mg/dL (NEGATIVE) H 09/14/20 06:35 Urine Glucose (UA) 50 mg/dL (NEGATIVE) H 09/14/20 06:35 Urine Ketones 80 mg/dL (NEGATIVE) H 09/14/20 06:35 Urine Blood LARGE (NEGATIVE) H 09/14/20 06:35 Urine Nitrite NEGATIVE (NEGATIVE) 09/14/20 06:35 Urine Bilirubin NEGATIVE (NEGATIVE) 09/14/20 06:35 Urine Urobilinogen NEGATIVE mg/dL (<2.0) 09/14/20 06:35 Ur Leukocyte Esterase TRACE (NEGATIVE) H 09/14/20 06:35 U [place] Prot/Creat Ratio CALCULATION NOT DONE mg/mg 09/14/20 09:53 Urine Creatinine 171.2 mg/dL (16-327) 09/14/20 09:53 Protein/Creatinin Ratio 3.6 mg/mg (0.0-0.2) H 09/14/20 06:35 Urine Total Protein < 5.0 mg/dL (<12) 09/14/20 09:53 Urine Ascorbic Acid NEGATIVE (NEGATIVE) 09/14/20 06:35 Membranes Rupture POSITIVE (NEGATIVE) H 09/14/20 06:35 Urine Opiates Screen NEGATIVE 09/14/20 06:35 Urine Methadone Screen NEGATIVE 09/14/20 06:35 Ur Barbiturates Screen NEGATIVE 09/14/20 06:35 Ur Phencyclidine Scrn NEGATIVE 09/14/20 06:35 Ur Amphetamines Screen NEGATIVE 09/14/20 06:35 U Benzodiazepines Scrn NEGATIVE 09/14/20 06:35 Urine Cocaine Screen NEGATIVE 09/14/20 06:35 U Marijuana (THC) Screen NEGATIVE 09/14/20 06:35 RPR NONREACTIVE (NONREACTIVE) 09/14/20 07:35 Blood Type B POSITIVE 09/14/20 07:35 Antibody Screen NEGATIVE 09/14/20 07:35 Plan Plan of Treatment: d/ c home, f/up with [facility] in 4 wks. Pts Rt arm slightly swollen d/t IV infiltrate, precautions reviewed. f/up if that numbness does not improve.
[2020-09-16 11:34] VITALS: BP 124/62
== END 2020-09-16 16:09 | disposition home or self-care (01) | DRG 807 ==
LOC: LC 06:20 → LR 07:19 → 2S 14:17
PROVIDERS: ADMIT Obstetrics & Gynecology; ATTEND Obstetrics & Gynecology
PROC: 10E0XZZ Delivery of Products of Conception, External Approach (ICD-10-PCS; principal; 2020-09-14)
PROC: 0KQM0ZZ Repair Perineum Muscle, Open Approach (ICD-10-PCS; 2020-09-14)
DX: O99.02 Anemia complicating childbirth (principal); O69.81X0 Labor and delivery complicated by cord around neck, without compression, not applicable or unspecified; O76 Abnormality in fetal heart rate and rhythm complicating labor and delivery; J06.9 Acute upper respiratory infection, unspecified; O99.513 Diseases of the respiratory system complicating pregnancy, third trimester; O70.1 Second degree perineal laceration during delivery; Z3A.40 40 weeks gestation of pregnancy; O99.334 Smoking (tobacco) complicating childbirth; Z37.0 Single live birth; F17.290 Nicotine dependence, other tobacco product, uncomplicated; D64.9 Anemia, unspecified
CPT/HCPCS: 36415; 80053; 80307; 81005; 82570; 83615; 84112; 84156; 84550; 85025; 85027; 86592; 86850; 86900; 86901; J2590; J3490